=== PATIENT | female | born 1970 ===

== ENCOUNTER 2016-08-03 20:07 | Emergency (ER) | payer OTHER, MEDICAID ==
[2016-08-03 20:16] VITALS: PULSE 83; RESP 14; TEMP 98; O2SAT 96
[2016-08-03] MEDS ORDERED: TDAP Vaccine 0.5 mL Syr IM ONE (20:26)
--- NOTE | 2016-08-03 20:31 | ED PDOC ---
Upper Extremity Pain/Injury Time Seen by Provider: 08/03/16 20:26 Chief Complaint (Nursing): Finger,Hand,&Wrist Chief Complaint (Provider): Right Hand Lacerations History Per: Patient History/Exam Limitations: no limitations Onset/Duration Of Symptoms: Hrs (x2.5) Current Symptoms Are (Timing): Still Present Additional Complaint(s): Cate Aiken is a 46 year old female, with a past medical history inclusive of HTN, who presents to the ED on 08/03/16 for the evaluation of two lacerations, sustained to her right thumb and hand respectively, that she had incurred as a glass that she had been washing shattered. Denies numbness/tingling. Tetanus vaccination is not up to date. PMD: Alvarez Dorado Past Medical History Reviewed: Historical Data, Nursing Documentation, Vital Signs Vital Signs: Last Vital Signs Temp 98.0 F 08/03/16 20:11 Pulse 83 08/03/16 20:11 Resp 14 08/03/16 20:11 BP 157/91 H 08/03/16 20:11 Pulse Ox 96 08/03/16 20:11 - Medical History PMH: HTN - Surgical History Surgical History: No Surg Hx - Family History Family History: States: Unknown Family Hx - Allergies Allergies/Adverse Reactions: Allergies Allergy/AdvReac Type Severity Reaction Status Date / Time No Known Allergies Allergy Verified 08/03/16 20:11 Review of Systems Musculoskeletal: Positive for: Hand Pain (lacerations to right thumb, hand) Neurological: Negative for: Numbness (no tingling) Physical Exam - Reviewed Nursing Documentation Reviewed: Yes Vital Signs Reviewed: Yes - Physical Exam Appears: Positive for: Non-toxic, No Acute Distress Extremity: Positive for: Normal ROM (FROM of all fingers on right hand, nuerovasc intact- 2 laceration: #1: webspace right btw 1st and 2nd digit .5cm irregular partial thickness no muscle demonstrated, no active bleeding no swelling. #2 laceration 3rd digit PIP-1.5 cm no active bleeding partial thickness. FROM no tendon exposed ). Negative for: Deformity Neurologic/Psych: Positive for: Alert, Oriented. Negative for: Motor/Sensory Deficits (sensation intact w/in right hand) - ECG O2 Sat by Pulse Oximetry: 96 (RA) Pulse Ox Interpretation: Normal - Radiology X-Ray: Interpreted by [place] X-Ray Interpretation: No Acute Disease Medical Decision Making Medical Decision Makin:26 Initial Impression: right thumb laceration, right hand laceration Initial Plan: * TDAP 0.5ml IM * Laceration Repair * Reevaluation Laceration repairs performed by this midlevel provider, see procedure notes for additional details. -wound care instructions -splint applied -advised not to wet wound -advised to have wound re-eval in 8days. Scribe Attestation: Documented by Audelia Chance, acting as a scribe for Katherine Glass PA-C. Provider Scribe Attestation: All medical record entries made by the Scribe were at my direction and personally dictated by me. I have reviewed the chart and agree that the record accurately reflects my personal performance of the history, physical exam, medical decision making, and the department course for this patient. I have also personally directed, reviewed, and agree with the discharge instructions and disposition. Procedures - Laceration/Wound Repair laceration Wound Length (cm): 1 (#1: .5cm, #2: 1.5cm) Wound's Depth, Shape: superficial, irregular Wound Explored: clean Irrigated w/ Saline (ccs): 250 Betadine Prep?: Yes Anesthesia: 1% Lidocaine Volume Anesthetic (ccs): 6 (used for two lacerations) Wound Debrided: minimal Wound Repaired With: Sutures Suture Size/Type: 5:0, proline, nylon Number of Sutures: 9 (3 used in web space. 6 used on 3rd digit.) Wound Complexity: Simple Sterile Dressing Applied?: Yes Splint Applied?: Yes Disposition - Clinical Impression Clinical Impression: Laceration - Patient ED Disposition Is Patient to be Admitted: No Counseled Patient/Family Regarding: Studies Performed, Diagnosis, Need For Followup, Rx Given - Disposition Disposition: Routine/Home Disposition Time: 22:09 Condition: STABLE Additional Instructions: do not wet wound do not remove splint return for removal of sutures in 6-8 days. Instructions: Laceration (ED), Care For Your Stitches (ED) Forms: [facility] ED School/Work Excuse Print Language: UKRAINIAN
[2016-08-03 22:24] VITALS: BP 137/84
--- NOTE | 2016-08-04 09:36 | RAD ---
PROCEDURE: Right Hand Radiographs. HISTORY: injury COMPARISON: None available. FINDINGS: BONES: No acute displaced fracture. JOINTS: No dislocation. SOFT TISSUES: Evidence of soft tissue laceration involving the lateral aspect soft tissues adjacent to the 3rd middle phalanx. No evidence of radiopaque foreign body. OTHER FINDINGS: None. IMPRESSION: Soft tissue irregularity compatible with laceration involving the lateral aspect soft tissues adjacent to the 3rd middle phalanx. No acute displaced fracture, dislocation, or significant joint effusion identified. If symptoms persist, or if there is continued clinical concern, x-ray follow-up in 7-10 days should be considered.
== END 2016-08-03 22:23 | disposition home or self-care (01) ==
LOC: H.ER 20:07
DX: S61.411A Laceration without foreign body of right hand, initial encounter (principal); S61.011A Laceration without foreign body of right thumb without damage to nail, initial encounter; W25.XXXA Contact with sharp glass, initial encounter; Y92.000 Kitchen of unspecified non-institutional (private) residence as the place of occurrence of the external cause